=== PATIENT | female | born 1950 | race Caucasian/White ===

== ENCOUNTER 2021-08-02 16:35 | Inpatient (IN) | payer MEDICARE, OTHER ==
[~2021-08-02] VITALS: Ht 167.6 cm; Wt 74.4 kg
[2021-08-02] MEDS ORDERED: TEMA15CA5 PO (16:54)
[2021-08-02] MEDS ORDERED: MAG355OR18 PO (16:54)
[2021-08-02] MEDS ORDERED: MELA3TAB41 PO (16:54)
[2021-08-02] MEDS ORDERED: MAGN400O6 PO (16:54)
[2021-08-02] MEDS ORDERED: ACET-2154 PO (16:54)
[2021-08-02] MEDS ORDERED: QUET25TA PO (16:54)
[2021-08-02] MEDS ORDERED: LORA-258 PO (16:54)
[2021-08-02] MEDS ORDERED: FLUO20CA42 PO (16:54)
[2021-08-02] MEDS ORDERED: MULT-594 PO (16:54)
[2021-08-02] MEDS ORDERED: LOSA25TA27 PO (16:54)
[2021-08-02] MEDS ORDERED: AMLO5TAB4 PO (16:54)
[2021-08-02] MEDS ORDERED: NA P133E RC (16:54)
[2021-08-02] MEDS ORDERED: BISA10SU61 RC (16:54)
[2021-08-02] MEDS ORDERED: DOCU250C14 PO (16:54)
--- NOTE | 2021-08-02 16:55 | NUR ---
Patient is sitting up watching TV in no distress. covid swab sent to lab
[2021-08-02 17:04] LABS: HEMATOCRIT 42.4 % (31.2-41.9); MEAN CORPUSCULAR HEMOGLOBIN 32.8 uug (24.7-32.8); MEAN CORPUSCULAR VOLUME 97.3 fL (75.5-95.3); PLATELET COUNT (AUTO) 272 K/uL (179-408)
[2021-08-02 17:16] LABS: BILIRUBIN,DIRECT 0.1 mg/dL (0.0-0.2); BILIRUBIN,TOTAL 0.2 mg/dL (0.2-1.0); CREATININE 0.8 mg/dL (0.6-1.3); POTASSIUM 4.3 mmol/L (3.5-5.1); TOTAL PROTEIN, SERUM 7.2 g/dL (6.4-8.2)
--- NOTE | 2021-08-02 17:18 | NUR ---
Patient is eating dinner
--- NOTE | 2021-08-02 17:55 | NUR ---
I called Crisis team, Estefania, patient is now medically cleared per
--- NOTE | 2021-08-02 19:18 | NUR ---
Hand off report given to Yumiko
--- NOTE | 2021-08-02 19:19 | NUR ---
Assumed care of patient from day shift RN. Received patient lying in bed. In no apparent distress. Calm and quiet, watching TV.
--- NOTE | 2021-08-02 19:50 | NUR ---
PET team/Telma arrive to do eval.
[2021-08-02] MEDS ORDERED: LORAZEPAM 0.5 MG TABLET ONE (20:26)
[2021-08-02] MEDS ORDERED: QUETIAPINE FUMARATE 25 MG TABLET ONE (20:27)
[2021-08-02] MEDS ORDERED: LORAZEPAM 0.5 MG TABLET PO ONE (20:30)
[2021-08-02] MEDS ORDERED: QUETIAPINE FUMARATE 25 MG TABLET PO ONE (20:30)
--- NOTE | 2021-08-02 21:13 | NUR ---
Report given to U DANIELA Correa.
--- NOTE | 2021-08-02 22:27 | NUR ---
Pt. admitted to MHU, Dx GD and DT on a 5150 hold and medically clear, under care of Dr. Paredes and LACEY Russell. Belongs List completed.
[2021-08-02 22:30] VITALS: BP 197/90
[2021-08-02] MEDS ORDERED: BLOOD SUGAR DIAGNOSTIC 1 EACH STRIP VI ONE (22:30)
[2021-08-02] MEDS ORDERED: MAGNESIUM HYDROXIDE 30 ML LIQUID UDC PO PRN ×2 (22:30→22:45)
[2021-08-02] MEDS ORDERED: LORAZEPAM 0.5 MG TABLET PO PRN (22:30)
[2021-08-02] MEDS ORDERED: BISACODYL 10 MG SUPP.RECT RC PRN (22:45)
[2021-08-02] MEDS ORDERED: CLONIDINE HCL 0.1 MG TABLET PO ONE (23:00)
--- NOTE | 2021-08-02 23:43 | NUR ---
The patient arrived at 2225H with BP elevated. made aware. Clonidine order was given one time dose. will continue to monitor.
--- NOTE | 2021-08-02 23:52 | NUR ---
Patient was given Clonidine at 2257H one time dose per MD order for BP 197/90 HR 71. BP rechecked at 2350H 170/78. Will continue to monitor.
[2021-08-02 23:57] VITALS: BP 170/78
[2021-08-03 03:29] VITALS: BP 159/90
--- NOTE | 2021-08-03 03:34 | NUR ---
Patient is resting comfortably, latest BP 159/90, HR57, denies discomfort. Not in any acute distress. will continue to monitor for any changes.
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
[2021-08-03 07:30] VITALS: BP 176/88
--- NOTE | 2021-08-03 07:30 | NUR ---
GPS/NSG Unable to notify personal lines advisor, to be endorsed to morning shift.
[2021-08-03] MEDS: MULTIVITAMINS,THERAPEUTIC TABLET PO SCH (09:02)
[2021-08-03] MEDS: DOCUSATE SODIUM 250 MG CAPSULE PO SCH (09:02)
[2021-08-03] MEDS: AMLODIPINE 5 MG TABLET PO SCH (09:04)
[2021-08-03 09:19] LABS: BILIRUBIN,TOTAL 0.4 mg/dL (0.2-1.0); CREATININE 0.7 mg/dL (0.6-1.3); POTASSIUM 4.1 mmol/L (3.5-5.1); TOTAL PROTEIN, SERUM 6.8 g/dL (6.4-8.2)
[2021-08-03] MEDS: risperiDONE 0.5 MG TABLET PO SCH ×2 (13:10→17:17)
[2021-08-03] MEDS: DIVALPROEX 250 MG TABLET.DR PO SCH ×2 (13:10→17:17)
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
[2021-08-03 16:52] VITALS: BP 139/82
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
[2021-08-03 20:08] VITALS: BP 140/74
[2021-08-03] MEDS: LOSARTAN POTASSIUM 25 MG TABLET PO SCH (20:29)
--- NOTE | 2021-08-04 07:11 | NUR ---
Unable to reach designated contact, will endorse to upcoming sift.
[2021-08-04 07:30] VITALS: BP 149/78
[2021-08-04] MEDS: AMLODIPINE 5 MG TABLET PO SCH (08:35)
[2021-08-04] MEDS: DOCUSATE SODIUM 250 MG CAPSULE PO SCH (08:35)
[2021-08-04] MEDS: MULTIVITAMINS,THERAPEUTIC TABLET PO SCH (08:35)
[2021-08-04] MEDS: risperiDONE 0.5 MG TABLET PO SCH ×4 (08:35→20:14)
[2021-08-04] MEDS: DIVALPROEX 250 MG TABLET.DR PO SCH ×3 (08:35→16:17)
[2021-08-04 15:55] VITALS: BP 107/50
[2021-08-04] MEDS: MUPIROCIN 2% OINT 22 GM TUBE NS SCH (20:14)
[2021-08-04] MEDS: LOSARTAN POTASSIUM 25 MG TABLET PO SCH (20:15)
[2021-08-04 20:35] VITALS: BP 162/80
--- NOTE | 2021-08-04 20:35 | NUR ---
GPS: Pt.is compliant with her meds.and care so far. No aggressive behavior noted. Re-directed and re-assured prn. Safe environment provided. Denied pain at this time. 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 Will continue to monitor.
[2021-08-05] MEDS: TEMAZEPAM 7.5 MG CAPSULE PO PRN (01:25)
--- NOTE | 2021-08-05 06:32 | NUR ---
GPS: Pt. remains asleep at this time. Safe environment provided. In no form of distress noted.
--- NOTE | 2021-08-05 06:45 | NUR ---
Continue to make attempts to contact designated person, endorsed to morning shift.
[2021-08-05 08:16] VITALS: BP 134/62
[2021-08-05] MEDS: risperiDONE 0.5 MG TABLET PO SCH ×4 (08:39→20:01)
[2021-08-05] MEDS: DOCUSATE SODIUM 250 MG CAPSULE PO SCH (08:40)
[2021-08-05] MEDS: MUPIROCIN 2% OINT 22 GM TUBE NS SCH ×2 (08:40→20:01)
[2021-08-05] MEDS: AMLODIPINE 5 MG TABLET PO SCH (08:40)
[2021-08-05] MEDS: MULTIVITAMINS,THERAPEUTIC TABLET PO SCH (08:40)
[2021-08-05] MEDS: DIVALPROEX 250 MG TABLET.DR PO SCH ×3 (08:42→16:20)
--- NOTE | 2021-08-05 10:27 | NUR ---
Firearms Report: Head Chopper completed and submitted a [employer] firearms report for 5150 grave disability and danger to others certifications. A copy of report has been placed in patient chart.
--- NOTE | 2021-08-05 13:00 | NUR ---
RADHA Initial Discharge Plan Pt currently resides at [facility] ([phone]) located at [address] [place] [address]. Pt and pt's sister reported she would like to return to [facility] upon discharge. RADHA called [facility] and spoke with Jose, pt's RN, who stated he was unsure whether pt will return. SW to follow up with [facility] admissions to determine whether pt will return. RADHA spoke with patient's sister, Paramjit Jett ([phone]) and discussed treatment and discharge plan. Pt's sister states that [facility] had informed her pt would be able to return upon discharge. RADHA will continue to work [facility] patient, family, and MD to ensure a safe and proper discharge plan.
--- NOTE | 2021-08-05 13:01 | NUR ---
SW Family Contact SW spoke with patient's sister, Paramjit Jett ([phone]) and discussed treatment and discharge plan. Paramjit provided collateral information (see sw assessment). Paramjit stated she is the DPOA and this SW requested copies. Paramjit stated [facility] would accept her back when she is ready for discharge.
[2021-08-05] MEDS: MAG HYDROX/AL HYDROX/SIMETH 30 ML LIQUID UDC PO PRN (15:17)
[2021-08-05 16:50] VITALS: BP 157/84
[2021-08-05 20:00] VITALS: BP 132/89
[2021-08-05] MEDS: LOSARTAN POTASSIUM 25 MG TABLET PO SCH (20:01)
--- NOTE | 2021-08-06 06:55 | NUR ---
GPS: Pt.slept 8 hrs.last night. Partially oriented and able to make needs known. No aggressive behavior noted. Safety emphasized. Bactroban therapy applied to both nares to resolve MRSA nares. Afebrile.
[2021-08-06] MEDS: DIVALPROEX 250 MG TABLET.DR PO SCH ×3 (08:28→17:35)
[2021-08-06] MEDS: MULTIVITAMINS,THERAPEUTIC TABLET PO SCH (08:28)
[2021-08-06] MEDS: DOCUSATE SODIUM 250 MG CAPSULE PO SCH (08:28)
[2021-08-06] MEDS: risperiDONE 0.5 MG TABLET PO SCH ×4 (08:28→20:01)
[2021-08-06] MEDS: AMLODIPINE 5 MG TABLET PO SCH (08:29)
[2021-08-06] MEDS: MUPIROCIN 2% OINT 22 GM TUBE NS SCH ×2 (08:32→20:01)
[2021-08-06 08:43] VITALS: BP 160/86
[2021-08-06 16:46] VITALS: BP 157/88
--- NOTE | 2021-08-06 18:00 | NUR ---
patient is AAO x2 denies any SI/HI, patient compliant with all po medication ,isolative withdrawn no interaction with other peers.encouraged patient to attend in group activity ,will continue close monitoring.
[2021-08-06] MEDS: ACETAMINOPHEN 325 MG TABLET PO PRN (19:57)
[2021-08-06] MEDS: LOSARTAN POTASSIUM 25 MG TABLET PO SCH (20:01)
--- NOTE | 2021-08-06 20:05 | NUR ---
GPS: Pt.is resting in bed at this time. Denies SI/HI. No aggressive behavior noted. Re-assured prn. Complaining of generalized pain 09/15. Rest periods encouraged to facilitate relief. B/P elevated at this time 171/89. Denies chest pains, N/V and headaches. Bedtime meds.given along with Tylenol 650 mg PO. Will continue to monitor. Fall precautions observed.
[2021-08-06 20:25] VITALS: BP 171/89
[2021-08-06 20:56] VITALS: BP 147/74
--- NOTE | 2021-08-06 21:00 | NUR ---
GPS: B/P at this time is 147/74. Denies pain nor any form of discomfort at this time. Will continue to monitor.
[2021-08-06] MEDS: MAG HYDROX/AL HYDROX/SIMETH 30 ML LIQUID UDC PO PRN (21:49)
--- NOTE | 2021-08-07 06:36 | NUR ---
GPS: Pt.remains asleep at this time. Breathing easy and unlabored. Safety strategies in place. Will continue to monitor.
[2021-08-07 07:18] LABS: CREATININE 0.7 mg/dL (0.6-1.3); POTASSIUM 4.3 mmol/L (3.5-5.1)
[2021-08-07 07:38] VITALS: BP 155/73
[2021-08-07] MEDS: AMLODIPINE 5 MG TABLET PO SCH (08:42)
[2021-08-07] MEDS: MULTIVITAMINS,THERAPEUTIC TABLET PO SCH (08:42)
[2021-08-07] MEDS: DOCUSATE SODIUM 250 MG CAPSULE PO SCH (08:44)
[2021-08-07] MEDS: risperiDONE 0.5 MG TABLET PO SCH ×4 (08:44→20:18)
[2021-08-07] MEDS: DIVALPROEX 250 MG TABLET.DR PO SCH ×3 (08:44→17:27)
[2021-08-07] MEDS: MUPIROCIN 2% OINT 22 GM TUBE NS SCH ×2 (08:45→20:20)
--- NOTE | 2021-08-07 14:51 | NUR ---
patient is compliant with medication , with Reality orientation impaired paranoid and suspicious. patient with poor insight and judgement .able to ambulating to restroom will continue close monitoring.
--- NOTE | 2021-08-07 15:42 | NUR ---
Social Work PC Hearing Notification Note: Patient stated to residential worker that patient did not want family to attend patient's probable cause hearing on 08/08/21 at 3:30PM.
[2021-08-07 16:53] VITALS: BP 150/82
[2021-08-07 20:06] VITALS: BP 165/89
[2021-08-07] MEDS: LOSARTAN POTASSIUM 25 MG TABLET PO SCH (20:18)
[2021-08-07] MEDS: MAG HYDROX/AL HYDROX/SIMETH 30 ML LIQUID UDC PO PRN (20:18)
[2021-08-07] MEDS: TEMAZEPAM 7.5 MG CAPSULE PO PRN (22:50)
--- NOTE | 2021-08-07 23:39 | NUR ---
Patient received in room awake. Patient is able to make needs known.Patient denies pain at this time. Patient is compliant with medication.Patient is alert/oriented x3 Patient has poor insight and judgement, requires redirection.Patient is able to ambulate without assistance. Safety measures rendered. Bed in lowest position, bed locked, and bed alarm on while in bed.
[2021-08-08 07:30] VITALS: BP 131/77
[2021-08-08 08:07] LABS: HEMATOCRIT 38.6 % (31.2-41.9); MEAN CORPUSCULAR VOLUME 96.4 fL (75.5-95.3); PLATELET COUNT (AUTO) 237 K/uL (179-408)
[2021-08-08 08:27] LABS: BILIRUBIN,TOTAL 0.4 mg/dL (0.2-1.0); CREATININE 0.6 mg/dL (0.6-1.3); POTASSIUM 4.5 mmol/L (3.5-5.1); TOTAL PROTEIN, SERUM 6.5 g/dL (6.4-8.2)
--- NOTE | 2021-08-08 08:41 | NUR ---
RADHA Discharge Update Note: Pt currently resides at [facility] ([phone]) located at [address] [place] [address]. RADHA spoke with Valentine in admissions at [facility] who stated that per the budget director at [facility], pt is welcome back upon discharge from [facility]. Pt is aware and agreeable to return.
[2021-08-08] MEDS: MULTIVITAMINS,THERAPEUTIC TABLET PO SCH (08:44)
[2021-08-08] MEDS: DIVALPROEX 250 MG TABLET.DR PO SCH ×3 (08:44→16:45)
[2021-08-08] MEDS: risperiDONE 0.5 MG TABLET PO SCH ×3 (08:44→16:45)
[2021-08-08] MEDS: AMLODIPINE 5 MG TABLET PO SCH (08:45)
[2021-08-08] MEDS: DOCUSATE SODIUM 250 MG CAPSULE PO SCH (08:46)
[2021-08-08] MEDS: MUPIROCIN 2% OINT 22 GM TUBE NS SCH ×2 (08:47→20:33)
--- NOTE | 2021-08-08 09:30 | NUR ---
Social Work PC Hearing Notification Note Update: Patient restated to back up worker that patient did not want family to attend patient's probable cause hearing today on 08/08/21 at 3:30PM. SW provided pt with a patient's rights handbook prior to the hearing. Pt is aware and agreeable.
[2021-08-08] MEDS: ACETAMINOPHEN 325 MG TABLET PO PRN (12:50)
--- NOTE | 2021-08-08 15:06 | NUR ---
GPS: PT PROBABLE CAUSE 14 DAY HOLD HEARING DONE TODAY WITH PROBABLE CAUSE OF GRAVE DISABILITY APPROVED.
[2021-08-08 15:59] VITALS: BP 131/82
[2021-08-08 20:01] VITALS: BP 136/74
[2021-08-08] MEDS: ATORVASTATIN 40 MG TABLET PO SCH (20:34)
[2021-08-08] MEDS: BENZTROPINE MESYLATE 0.5 MG TABLET PO SCH (20:34)
[2021-08-08] MEDS: EZETIMIBE 10 MG TABLET PO SCH (20:35)
[2021-08-08] MEDS: risperiDONE 1 MG TABLET PO SCH (20:35)
[2021-08-08] MEDS: LOSARTAN POTASSIUM 25 MG TABLET PO SCH (20:36)
--- NOTE | 2021-08-09 05:00 | NUR ---
Patient had incident of fall. Patient roomates call the attention of staff that patient on the floor. Patient on the floor seated on her left side buttock, and same time seated on foam door of the restroom. Patient stated that the foam door fell on the floor cause her to lose her balance. Patient has no complain of pain, no dizziness,assisted back to bed, no visible injury noted, cont to monitor.
--- NOTE | 2021-08-09 05:17 | NUR ---
Patient received in bed, alert able to make her needs know, ambulate in hallways, patient calm, cooperative with care and medications, ambulate to toilet with fww. Patient slept most of the night, no complain of pain, cont to monitor.
--- NOTE | 2021-08-09 05:48 | NUR ---
Emeterio Moreno NP was notify regarding the incident.
--- NOTE | 2021-08-09 06:19 | NUR ---
RN material handling supervisor Ms Bobo notify.
[2021-08-09 07:30] VITALS: BP 150/82
[2021-08-09] MEDS: DIVALPROEX 250 MG TABLET.DR PO SCH ×3 (09:31→17:46)
[2021-08-09] MEDS: MULTIVITAMINS,THERAPEUTIC TABLET PO SCH (09:31)
[2021-08-09] MEDS: risperiDONE 0.5 MG TABLET PO SCH ×3 (09:32→17:46)
[2021-08-09] MEDS: DOCUSATE SODIUM 250 MG CAPSULE PO SCH (09:32)
[2021-08-09] MEDS: AMLODIPINE 5 MG TABLET PO SCH (09:32)
[2021-08-09] MEDS: MUPIROCIN 2% OINT 22 GM TUBE NS SCH ×2 (11:55→20:37)
--- NOTE | 2021-08-09 15:00 | NUR ---
Patient is isolative, withdrawn, quiet, cooperative, complaint with medications. Denies pain or any discomfort. Denies SI/HI AH/VH and SOB. Pt. is encourage to vent feelings. Fall and safety precautions implemented.
[2021-08-09 16:00] VITALS: BP 166/99
[2021-08-09 20:00] VITALS: BP 148/86
[2021-08-09] MEDS: LOSARTAN POTASSIUM 25 MG TABLET PO SCH (20:38)
[2021-08-09] MEDS: ATORVASTATIN 40 MG TABLET PO SCH (20:38)
[2021-08-09] MEDS: risperiDONE 1 MG TABLET PO SCH (20:38)
[2021-08-09] MEDS: EZETIMIBE 10 MG TABLET PO SCH (20:38)
[2021-08-09] MEDS: BENZTROPINE MESYLATE 0.5 MG TABLET PO SCH (20:38)
--- NOTE | 2021-08-10 06:18 | NUR ---
Patient is withdrawn and isolative. Asking to have the lights in the room shut off at the start of the shift. No willing to engage in any meaningful conversation. Medication compliant so far. Mood labile. Sleep hours were 7.45. Refused a shower. Safety stratiges are in place and monitoring for behavior escalation .
[2021-08-10 07:30] VITALS: BP 144/72
[2021-08-10] MEDS: MUPIROCIN 2% OINT 22 GM TUBE NS SCH ×2 (09:20→20:46)
[2021-08-10] MEDS: MULTIVITAMINS,THERAPEUTIC TABLET PO SCH (09:20)
[2021-08-10] MEDS: DOCUSATE SODIUM 250 MG CAPSULE PO SCH (09:20)
[2021-08-10] MEDS: DIVALPROEX 250 MG TABLET.DR PO SCH ×3 (09:20→16:31)
[2021-08-10] MEDS: AMLODIPINE 5 MG TABLET PO SCH (09:21)
[2021-08-10] MEDS: risperiDONE 0.5 MG TABLET PO SCH ×3 (09:21→16:31)
[2021-08-10 16:00] VITALS: BP 120/69
--- NOTE | 2021-08-10 18:39 | NUR ---
patient is isolative, quiet, remained in her bed. She is compliant with medication and care. Encouraged to verbalized concerns. Contract for safety with the patient. Safety measure maintained. Denies SI/HI. will endorse to the next shift for continuity of care.
[2021-08-10 20:00] VITALS: BP 121/71
[2021-08-10] MEDS: EZETIMIBE 10 MG TABLET PO SCH (20:46)
[2021-08-10] MEDS: BENZTROPINE MESYLATE 0.5 MG TABLET PO SCH (20:46)
[2021-08-10] MEDS: LOSARTAN POTASSIUM 25 MG TABLET PO SCH (20:47)
[2021-08-10] MEDS: risperiDONE 1 MG TABLET PO SCH (20:48)
[2021-08-10] MEDS: ATORVASTATIN 40 MG TABLET PO SCH (21:34)
[2021-08-11 07:30] VITALS: BP 156/75
[2021-08-11] MEDS: AMLODIPINE 5 MG TABLET PO SCH (08:44)
[2021-08-11] MEDS: DIVALPROEX 250 MG TABLET.DR PO SCH ×2 (08:45→17:20)
[2021-08-11] MEDS: MULTIVITAMINS,THERAPEUTIC TABLET PO SCH (08:45)
[2021-08-11] MEDS: DOCUSATE SODIUM 250 MG CAPSULE PO SCH (08:45)
[2021-08-11] MEDS: risperiDONE 0.5 MG TABLET PO SCH ×3 (08:45→17:21)
[2021-08-11] MEDS: MUPIROCIN 2% OINT 22 GM TUBE NS SCH (08:46)
--- NOTE | 2021-08-11 16:08 | NUR ---
The patient has been up and out of the room more this afternoon. The sheet writer was able to engage in conversation with the patient, but she soon became paranoid at shut sown. Safety stratiges are in place and continuing to monitor the patient for signs of aggression. None noted so far.
[2021-08-11 17:06] VITALS: BP 142/80
[2021-08-11] MEDS: ATORVASTATIN 40 MG TABLET PO SCH (20:21)
[2021-08-11] MEDS: BENZTROPINE MESYLATE 0.5 MG TABLET PO SCH (20:21)
[2021-08-11] MEDS: LOSARTAN POTASSIUM 25 MG TABLET PO SCH (20:21)
[2021-08-11] MEDS: DIVALPROEX 500 MG TABLET.DR PO SCH (20:23)
[2021-08-11] MEDS: risperiDONE 2 MG TABLET PO SCH (20:25)
[2021-08-11] MEDS: EZETIMIBE 10 MG TABLET PO SCH (20:25)
[2021-08-11 20:32] VITALS: BP 135/63
[2021-08-11] MEDS ORDERED: risperiDONE 1 MG TABLET PO SCH (21:00)
[2021-08-11] MEDS: MAG HYDROX/AL HYDROX/SIMETH 30 ML LIQUID UDC PO PRN (21:14)
--- NOTE | 2021-08-12 06:12 | NUR ---
No behavioral issues identified during the shift. Patient is compliant with medications. Unsteady gait noted, reminded with a use of FWW at all time, she is high risk for fall. Safety measures maintained. Assisted with needs. No acute distress noted. Frequent visual checks done. will endorse to the next shift for continuity of care.
[2021-08-12 08:30] VITALS: BP 139/66
[2021-08-12] MEDS: risperiDONE 0.5 MG TABLET PO SCH ×3 (08:51→16:26)
[2021-08-12] MEDS: MULTIVITAMINS,THERAPEUTIC TABLET PO SCH (08:51)
[2021-08-12] MEDS: DIVALPROEX 250 MG TABLET.DR PO SCH ×2 (08:51→16:25)
[2021-08-12] MEDS: DOCUSATE SODIUM 250 MG CAPSULE PO SCH (08:51)
[2021-08-12] MEDS: AMLODIPINE 5 MG TABLET PO SCH (08:52)
[2021-08-12 16:48] VITALS: BP 134/77
[2021-08-12 20:00] VITALS: BP 177/67
[2021-08-12] MEDS: DIVALPROEX 500 MG TABLET.DR PO SCH (21:16)
[2021-08-12] MEDS: ATORVASTATIN 40 MG TABLET PO SCH (21:16)
[2021-08-12] MEDS: BENZTROPINE MESYLATE 0.5 MG TABLET PO SCH (21:16)
[2021-08-12] MEDS: risperiDONE 2 MG TABLET PO SCH (21:16)
[2021-08-12] MEDS: EZETIMIBE 10 MG TABLET PO SCH (21:16)
[2021-08-12] MEDS: LOSARTAN POTASSIUM 25 MG TABLET PO SCH (21:17)
--- NOTE | 2021-08-12 21:20 | NUR ---
GPS: B/P at this time is 177/69. Denies headaches,SOB,N/V nor any form of discomfort at this time. Routine B/P med.administered. Will monitor effectiveness.
--- NOTE | 2021-08-12 22:30 | NUR ---
GPS: Refused to have B/P re-checked at this time despite numerous attempts by staff. Risks vs benefits explained x3 but unsuccessful. Denies any discomfort at this time. Will continue to monitor.
[2021-08-12] MEDS: TEMAZEPAM 7.5 MG CAPSULE PO PRN (22:44)
[2021-08-13] MEDS: DOCUSATE SODIUM 250 MG CAPSULE PO SCH (08:59)
[2021-08-13] MEDS: AMLODIPINE 5 MG TABLET PO SCH (08:59)
[2021-08-13] MEDS: MULTIVITAMINS,THERAPEUTIC TABLET PO SCH (08:59)
[2021-08-13] MEDS: risperiDONE 0.5 MG TABLET PO SCH ×3 (08:59→16:00)
[2021-08-13] MEDS: DIVALPROEX 250 MG TABLET.DR PO SCH ×2 (09:01→16:00)
[2021-08-13 09:17] VITALS: BP 93/63
[2021-08-13 16:28] VITALS: BP 144/62
[2021-08-13] MEDS: risperiDONE 2 MG TABLET PO SCH (20:30)
[2021-08-13] MEDS: EZETIMIBE 10 MG TABLET PO SCH (20:30)
[2021-08-13] MEDS: LOSARTAN POTASSIUM 25 MG TABLET PO SCH (20:31)
[2021-08-13] MEDS: ATORVASTATIN 40 MG TABLET PO SCH (20:31)
[2021-08-13] MEDS: DIVALPROEX 500 MG TABLET.DR PO SCH (20:31)
[2021-08-13] MEDS: BENZTROPINE MESYLATE 0.5 MG TABLET PO SCH (20:31)
[2021-08-13 20:43] VITALS: BP 129/75
[2021-08-13] MEDS: TEMAZEPAM 7.5 MG CAPSULE PO PRN (21:35)
[2021-08-14 07:45] VITALS: BP 130/64
--- NOTE | 2021-08-14 09:49 | NUR ---
RADHA Discharge Update Note: RADHA contacted Valentine from [facility] ([phone]) located at [address] [place] [address] who stated that pt is welcome back upon discharge. RADHA informed pt's sister, Radha Major ([phone]). Radha is aware and agreeable with the discharge plan.
[2021-08-14] MEDS: risperiDONE 0.5 MG TABLET PO SCH ×3 (09:50→17:57)
[2021-08-14] MEDS: DIVALPROEX 250 MG TABLET.DR PO SCH ×2 (09:50→17:57)
[2021-08-14] MEDS: MULTIVITAMINS,THERAPEUTIC TABLET PO SCH (09:51)
[2021-08-14] MEDS: DOCUSATE SODIUM 250 MG CAPSULE PO SCH (09:51)
[2021-08-14] MEDS: AMLODIPINE 5 MG TABLET PO SCH (09:51)
--- NOTE | 2021-08-14 12:57 | NUR ---
GPS: Nursing Notes: Destructive Behavior To Others: Patient is awake and responding to her name, compliant with her medications, A/Ox2-3, needs minimal assistance with ADL's, isolative and withdrawn in her room, needs a lot of prompting for minimal participation in therapeutic groups, resistant with nursing care at times, unable to formulate a viable plan for self care, no aggressive behavior noted during shift, denies HI, cooperative with staff, forgetful at times, continue to monitor for safety, continue with treatment plan.
[2021-08-14 16:08] VITALS: BP 137/70
[2021-08-14 20:29] VITALS: BP 120/59
[2021-08-14] MEDS: EZETIMIBE 10 MG TABLET PO SCH (21:49)
[2021-08-14] MEDS: DIVALPROEX 500 MG TABLET.DR PO SCH (21:49)
[2021-08-14] MEDS: ATORVASTATIN 40 MG TABLET PO SCH (21:56)
[2021-08-14] MEDS: BENZTROPINE MESYLATE 0.5 MG TABLET PO SCH (21:56)
[2021-08-14] MEDS: risperiDONE 2 MG TABLET PO SCH (21:56)
[2021-08-14] MEDS: TEMAZEPAM 7.5 MG CAPSULE PO PRN (21:57)
[2021-08-14] MEDS: LOSARTAN POTASSIUM 25 MG TABLET PO SCH (21:57)
[2021-08-15 08:03] VITALS: BP 163/74
[2021-08-15 08:35] VITALS: BP 163/74
[2021-08-15] MEDS: DIVALPROEX 250 MG TABLET.DR PO SCH (08:35)
[2021-08-15] MEDS: risperiDONE 0.5 MG TABLET PO SCH ×2 (08:35→13:00)
[2021-08-15] MEDS: MULTIVITAMINS,THERAPEUTIC TABLET PO SCH (08:35)
[2021-08-15] MEDS: AMLODIPINE 5 MG TABLET PO SCH (08:35)
[2021-08-15] MEDS: DOCUSATE SODIUM 250 MG CAPSULE PO SCH (08:35)
--- NOTE | 2021-08-15 09:36 | NUR ---
RADHA Discharge Note: Pt will be discharged to [facility] [address] [place] [address] ([phone]) via Ambulance transportation at 1PM. RADHA spoke with admin coordinator, Valentine at the facility who states they are ready to accept the patient today. Pt is aware and agreeable with discharge plans. Pts sister, Paramjit ([phone]) Pt is alert and oriented x0, is unable to plan for self-care at this time; however, is willing to accept care at SNF. Pt denies any suicidal or homicidal ideation. Pt will follow-up at the facility with Psychiatrist, Dr. Paredes and Housekeeper Home, Dr. Fenton. Pt presents with calm mood and congruent affect. Pt will be in room 14B at the facility. PHARMACY: [facility] ([phone]) [address] [facility] [address].
--- NOTE | 2021-08-15 10:35 | NUR ---
PT ALERT AND VERBALLY RESPONSIVE, DENIES ANY PAIN OR DISCOMFORT. PT COMPLIANT WITH CARE AND MEDS. PT WILL BE DISCHARGE TODAY AT [facility] AT 1PM VIA AMBULANCE. PT ISOLATIVE, LIKE STAYING IN HER ROOM BUT SOMETIMES SEEN GOING [facility]IUT AND WALK ON HALLWAY. MAKES CONVERSATION WITH ROOM MATES. PT NO AGITATION NOTED AT THIS TIME. UNABLE TO FORMULATE VIABLE PLAN FOR SELF. DENIES SI/HI.
--- NOTE | 2021-08-15 11:47 | NUR ---
GPS: DISCHARGE ENDORSEMENT DONE TO DANIELA BARBOUR OF [facility] ([place], [place]). PT ON BED ASLEEP, REFUSED TO SIGN THE DISCHARGE INSTRUCTIONS AND OTHER DOCUMENTS. PT DENIES ANY PAIN OR DISCOMFORT.
--- NOTE | 2021-08-15 13:26 | NUR ---
GPS: PT DISCHARGED FROM FACILITY AND [employer] AUTHOR BY AMBULANCE GOING TO [facility]. PT BELONGINGS GIVEN AND PT REFUSED TO SIGN. DENIES ANY PAIN OR DISCOMFORT. NO ANXIETY OR AGITATION NOTED.
== END 2021-08-15 13:29 | DRG 885 ==
LOC: ER 16:38 → GPS 22:14
PROVIDERS: ADMIT Psychiatry & Neurology Psychosomatic Medicine; ATTEND Family Medicine
DX: F25.9 Schizoaffective disorder, unspecified (principal); E44.1 Mild protein-calorie malnutrition; F10.21 Alcohol dependence, in remission; I10 Essential (primary) hypertension; Z91.51 Personal history of suicidal behavior; E78.5 Hyperlipidemia, unspecified; E88.09 Other disorders of plasma-protein metabolism, not elsewhere classified; F03.90 Unspecified dementia, unspecified severity, without behavioral disturbance, psychotic disturbance, mood disturbance, and anxiety; F31.9 Bipolar disorder, unspecified; F41.9 Anxiety disorder, unspecified; K21.9 Gastro-esophageal reflux disease without esophagitis; E66.9 Obesity, unspecified; Z68.26 Body mass index [BMI] 26.0-26.9, adult; Z73.6 Limitation of activities due to disability; D75.89 Other specified diseases of blood and blood-forming organs; J98.4 Other disorders of lung
CPT/HCPCS: 36415; 71045; 80164; 85025; 93005; 97161; A4663; J3490